=== PATIENT | female | born 1955 | race Caucasian/White ===

== ENCOUNTER → 2019-04-16 16:49 | Outpatient (CLI) | payer OTHER, SELFPAY ==
--- NOTE | 2019-04-16 17:00 | CT_ITS ---
HISTORY: Conductive hearing loss on left that has been getting progressively worse. Technique: 0.625 mm images were obtained through the temporal bones. 2-D reformats were performed in multiple planes. No comparison imaging. 461 images. Findings: On the left there is soft tissue within the middle ear. The soft tissue surrounds the middle ear ossicles within the epi tympanum. The middle ear ossicles appear to be in normal position with normal ossification, and without erosion or displacement. The external auditory canal is free of disease. Some of the ossified septations within the left mastoid air cells have been eroded. The left mastoid is much more sclerotic and less aerated than the right. The medial cortex of the mastoid air cells, where they abut the cerebellum appear to be slightly eroded. Vestibular and cochlear systems are normal. Internal auditory canal is normal. Course of the sixth nerve appears to be normal. The right side appears normal. CT/Orb Sella Post Fossa Ear w/o IMPRESSION: Sclerosis to the left mastoid air cells. Soft tissue within the left middle ear surrounding the middle ear ossicles without displacement or erosion. Of the middle ear ossicles. There may be some erosion of the normal ossific septations within the left mastoid air cells, but without identified soft tissue mass. There is some erosion of the medial table of the mastoid air cells where they abut the cerebellum, but without identified mass. 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 Individualized dose optimization techniques were used for this CT. at 0331 Reported and signed by: Fadi Wagoner MD Electronically Signed: Fadi Wagoner MD at 3:30 EDT Tel , Service support ,
== END ==
PROVIDERS: Family Provider Family Medicine; PCP Family Medicine; Referring Provider Otolaryngology Otolaryngology/Facial Plastic Surgery; Visit Provider Otolaryngology Otolaryngology/Facial Plastic Surgery
DX: H90.12 Conductive hearing loss, unilateral, left ear, with unrestricted hearing on the contralateral side (principal)
CPT/HCPCS: 70480

== ENCOUNTER → 2021-06-18 | Outpatient (CLI) | payer OTHER, SELFPAY ==
[2021-06-18 10:57] VITALS: BMI 28.8
== END | disposition home or self-care (01) ==
LOC: LABSPEC 12:00
PROVIDERS: PCP Family Medicine; Visit Provider Obstetrics & Gynecology
DX: N89.8 Other specified noninflammatory disorders of vagina (principal)
CPT/HCPCS: 87070; 87205

== ENCOUNTER 2021-07-06 05:35 | Day surgery (SDC) | payer OTHER, SELFPAY ==
--- NOTE | 2021-06-30 10:22 | EKG12_ITS ---
Test Reason : PRE OP Blood Pressure : / mmHG Vent. Rate : 067 BPM Atrial Rate : 067 BPM P-R Int : 146 ms QRS Dur : 086 ms QT Int : 428 ms P-R-T Axes : 072 079 066 degrees QTc Int : 452 ms Normal sinus rhythm Low voltage QRS Borderline ECG Confirmed by JUVE BORREGO, CHRISTIANO ([id number]), book or script editor TRACE DEY ([id number]) on 07/01/2021 9:18:35 AM Referred By: Heidy Hare Confirmed By:CHRISTIANO AN MD
[2021-06-30 12:02] LABS: Hematocrit 39.3 % (37-47); Hemoglobin 12.4 g/dL (12.0-15.0); Mean Corp Hgb Conc 31.6 g/dL (32-36); Mean Corpuscular Hgb 28.1 pg (27.0-32.0); Mean Corpuscular Volume 88.9 fL (81-99); Mean Platelet Vol. 9.6 fl (6.2-12.0); Platelet Count 267 K/mm3 (150-450); RBC Distribution Width CV 13.5 % (11.6-14.6); RBC Distribution Width SD 44.2 fl (35.1-43.9); Red Blood Count 4.42 M/mm3 (4.2-5.4); White Blood Count 4.4 K/mm3 (4.4-11.0)
[2021-06-30 12:07] LABS: Prothrombin Time (Protime)PT. 12.7 SECONDS (11.7-14.9)
[2021-06-30 12:08] LABS: Partial Thromboplast Time 27.1 Seconds (24.1-36.2)
[2021-06-30 12:12] LABS: AST(SGOT) 14 U/L (15-37); Alanine Aminotransfer ALT/SGPT 30 U/L (13-56); Albumin, Serum 4.1 g/dL (3.2-5.0); Alkaline Phosphatase 90 U/L (45-117); Bilirubin, Direct 0.12 mg/dL (0.00-0.30); Globulin 3.2 g/dL (2.2-4.2); Magnesium 2.3 mg/dL (1.6-2.6); Protein, Total 7.3 g/dL (6.4-8.2)
[2021-06-30 12:31] LABS: ALB/GLOB Ratio 1.2 RATIO (0.9-2.4); AST(SGOT) 14 U/L (15-37); Alanine Aminotransfer ALT/SGPT 29 U/L (13-56); Albumin, Serum 4.1 g/dL (3.2-5.0); Alkaline Phosphatase 89 U/L (45-117); Anion Gap 7 (5-15); BUN 15 mg/dL (7-18); BUN/Creat Ratio 20.1 RATIO (10-20); Calcium,Total 9.1 mg/dL (8.5-10.1); Chloride 104 mmol/L (98-107); Creatinine, Serum 0.75 mg/dL (0.55-1.02); EST Glomerular Filtration Rate 83 mL/min (>60); Est Glom Filt Rate - Afr Amer 101 mL/min (>60); Globulin 3.3 g/dL (2.2-4.2); Glucose 83 mg/dL (74-106); Potassium 4.1 mmol/L (3.5-5.1); Protein, Total 7.4 g/dL (6.4-8.2); Sodium Level 142 mmol/L (136-145)
--- NOTE | 2021-07-05 23:43 | PCM.HP.BLA ---
History and Physical Date of Admission: 07/05/21 Intake Visit Reasons: TVH BSO Chief Complaint: pre op TV BSO Palliative Care Physician Required: No Is patient in pain?: No Allergies codeine Allergy (Mild, Verified 06/18/21 10:57) other penicillin G Allergy (Mild, Verified 06/18/21 10:57) other Sulfa (Sulfonamide Antibiotics) Allergy (Mild, Verified 06/18/21 10:57) other Medications cephalexin 500 mg capsule 500 mg PO BID 12/08/20 [History Confirmed 06/18/21] cranberry 400 mg capsule 400 mg PO DAILY 12/08/20 [History Confirmed 06/18/21] esomeprazole magnesium 20 mg capsule,delayed release 20 mg PO DAILY 12/08/20 [History Confirmed 06/18/21] Is last menstrual period known: No Post menopausal: Yes Patient : No : No [facility] Medical History Melanoma Surgical History History of endometrial ablation Family History Mother Heart disease Diabetes Father Heart disease Diabetes Social History Smoking Status: Never smoker alcohol intake: current details: social substance use type: does not use caffeine: Yes what type of physical activity do you participate in: none seatbelt use: always do you feel safe at home: Yes additional social history: 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 Female Reproductive History Menopausal Symptoms: No night sweats Pregancy History 3 Elective abortions Hx Para 3 Spontaneous abortions Hx # Term Pregnancies Ectopic pregnancies Hx # Pregnancies Multiple births # of living children Past Pregnancies Del. Date Name GA/Weeks Outcome Route Bth Weight Gen Labor Lgth Anesthesia Del Locatn Provider FOB Unknown 1980 Rodrigo live - full term Unknown Bull live - full term Unknown Tomas live - full term ROS Const Constitutional: Denies fatigue, night sweats, weight gain or weight loss ENT ENT: Reports system reviewed and no additional complaints, except as documented Cardio Card: Denies chest pain Resp Resp: Denies cough or dyspnea GI GI: Reports as per HPI; Denies abdominal pain, constipation, nausea or vomiting : Reports prolapse symptoms and vaginal discharge; Denies nipple discharge, urinary frequency, urinary incontinence, urinary hesitancy, urinary urgency, vaginal dryness, vaginal odor or vaginal pruritus Musc Musc: Reports arthralgias and back pain; Denies muscle weakness Skin Skin/Breast: Denies alopecia, change in hair, dry skin, breast mass, breast pain, breast skin changes or nipple discharge Neuro Neuro: Reports system reviewed and no additional complaints, except as documented Psych Psych: Reports system reviewed and no additional complaints, except as documented Endo Endo: Denies cold intolerance, excessive sweating, heat intolerance or polydipsia Loyd/Lymph Hematologic/Lymphatic: Denies easy bleeding, Reports easy bruising and Denies lymphadenopathy Exam Const General: cooperative, healthy appearing, comfortable, no acute distress and well developed Orientation: alert HENNM Head: normal to inspection and normocephalic Ears: hearing grossly normal bilaterally and external ears normal Nose: external nose normal and nares normal Face and sinus: normal facial exam Neck Neck: normal visual inspection and no lymphadenopathy Thyroid: thyroid normal Chest Chest palpation & inspection: normal inspection of the chest Resp Effort & Inspection: normal respiratory effort Auscultation: clear to auscultation bilaterally Cardio Rate: regular rate Rhythm: regular rhythm Heart Sounds: S1 normal and S2 normal GI Inspection: normal to inspection and non-distended Palpation: soft and no hepatosplenomegaly General: bladder normal to palpation External Female Exam: normal external appearance and normal appearance of the urethra Urethra: normal appearance of the urethra, normal palpation and no discharge Speculum Exam - Vagina: normal appearance of the vagina and abnormal vaginal discharge Speculum Exam - Cervix: normal appearance of the cervix and nontender Bimanual Exam- Vagina & Uterus: normal bimanual exam, uterine size normal, bladder normal to palpation, uterine shape normal, No tender, uterine mobility normal, consistency normal, normal palpation and non-tender Bimanual Exam- Adnexa, other: normal adnexae, adnexae mobile, no masses, rectocele, cystocele and vaginal apex descent Pelvic Support: cystocele, rectocele and vaginal apex descent Musc Other: gross motor intact no deficits, full bilateral strength Skin General: no rashes or lesions noted Neuro General: patient alert, patient awake, moves all extremities and no focal motor deficits Motor: muscle tone normal throughout Extrem General: normal to inspection and no pedal edema Psych Appearance: grossly normal Mental Status: mental status grossly normal Affect: normal affect Speech and Movement: speech and movement normal Coding Level of Care Code No Charge Diagnoses Incomplete uterovaginal prolapse N81.2 Assessment and Plan Assessment and Plan (1) Incomplete uterovaginal prolapse: Status: Acute Comment: discussed surgical options. when desires intervention plan TVHBS possible BSO combo case with drea Plan Details Other Orders: Orders: Culture, Genital Comprehensive Today N89.8 06/18/21 1138 UPDATE- I have seen the patient and performed any clinically relevant updates to the history and physical exam. Heidy Hare MD
[2021-07-06] VITALS (14 sets, daily range): BP systolic 93–145; BP diastolic 55–85; PULSE 55–76; RESP 14–16; TEMP 36.2–36.6; O2SAT 93–100; BMI 29.2
[2021-07-06] MEDS: dexAMETHasone 10 MG/ML Vial 8 MG IV (07:00)
[2021-07-06] MEDS: Scopolamine 1mg/72hr Patch 1 PATCH TD (07:00)
[2021-07-06] MEDS: Celecoxib 200 MG Capsule 400 MG PO (07:06)
[2021-07-06] MEDS: Acetaminophen 500 MG Tablet 1000 MG PO ×2 (07:06→17:56)
[2021-07-06] MEDS: Enoxaparin 40 MG/0.4 ML Syringe SC (07:08)
[2021-07-06] MEDS: Gabapentin 600 MG Tablet PO (07:09)
[2021-07-06 07:16] LABS: Bedside Glucose 82 mg/dL (70-110)
--- NOTE | 2021-07-06 07:30 | HYST_PTH ---
PATIENT: RALF [place]ALLORY [place] [facility] [id number] AGE/SX: 66/F ROOM: RE07/06/[address]: Dr. Heidy Hare MD : 1955 BED: DIS: 07/07/2021 SPEC #: [id number] RECD: 07/06/21 10:43 STATUS: ABE REChi #: [id number] FRANK: 07/06/21 07:[address]: Heidy Hare DEPT: SURGICAL PATHOLOGY RECD BY: Alecia Morelos ENTERED: 07/06/21 10:57 SP TYPE: HYSTERECT OTHR DR: MD Dr. Sandra Santiago MD Tissues: Uterus, NOS Procedures: Surgery Specimen Level V HEADER OPERATION: ERAS, vaginal hysterectomy, salpingo-oophorectomy PRE-OP DIAGNOSIS: Incomplete uterovaginal prolapse TISSUE SUBMITTED: Uterus, cervix, bilateral fallopian tubes and ovaries MICROSCOPIC DIAGNOSIS Uterus, cervix, bilateral fallopian tubes and ovaries, vaginal hysterectomy and bilateral salpingo-oophorectomy: Cervix ? chronic inflammation. Endometrium ? atrophic endometrium. Myometrium ? intramural and subserosal leiomyomas. - Focal adenomyosis. Bilateral fallopian tubes - no pathologic diagnosis. One ovary ? mesothelial inclusion cysts with focal calcification. Benign simple epithelial cyst (0.5 cm in greatest dimension). Second ovary ? focal calcification. SJ:erika 07/07/2021 MICROSCOPIC DESCRIPTION Slides are reviewed. GROSS DESCRIPTION Received in fixative is one container labeled with the patient's name and designated uterus, cervix, bilateral fallopian tube and ovaries. The specimen consists of a hysterectomy specimen consisting of uterus with cervix and detached bilateral fallopian tube and ovaries. The uterus with cervix weighs 45 gm and measures 7 x 4 x 3 cm. The serosal surface is painter, glistening. A subserosal nodule is noted. The ectocervical mucosa is congested. The external os is slit-like in contour. The endocervical canal measures 2 cm in length and the endocervical mucosa is unremarkable. The triangular endometrial cavity measures 3 cm in length and 2.5 cm in width. The endometrium is painter, glistening without any mass lesion and measures <0.1 cm in thickness. Sections of the uterine wall reveal two small nodular masses, each measuring 0.3 cm in diameter. These masses are intramural and subserosal in location. The uterine wall measures up to 2 cm in thickness. Ovaries and fallopian tubes are not identified as right or left. One of the fallopian tube measures 3 cm in length and 0.5 cm in diameter. The fimbrial end is identified. No tubo-ovarian adhesions are noted. Sections reveal unremarkable cut surfaces. The adjacent ovary measures 2 x 1 x 1 cm. Sections reveal a cyst filled with clear fluid measuring 0.5 cm in greatest dimension. The second fallopian tube measures 2 cm in length and 0.5 cm in diameter. It is similar appearance to the first one. The adjacent second ovary measures 2 x 1 x 0.7 cm. Sections reveal unremarkable cut surfaces. A small paratubal cyst is noted measuring 0.2 cm in greatest dimension. [employer] sections are submitted in eight cassettes as follows: 1 - anterior cervix, 2 - posterior cervix, 3 & 4 - anterior uterine wall, 5 & 6 - posterior uterine wall. Cassette 4 contains the subserosal nodular mass. Cassette 6 contains the intramural nodular mass. 7 - one fallopian and adjacent ovary, 8?second fallopian tube, paratubal cyst and adjacent ovary. / MARIUM:erika 07/06/21 TC:1 CPT: 80501
[2021-07-06] MEDS: Lactated Ringers 1,000 ML 40 ML IV (07:51)
[2021-07-06] MEDS: Vasopressin 20 UNITS/ML Vial (08:13)
[2021-07-06] MEDS: Lactated Ringers 1,000 ML 70 ML IV ×2 (09:30→15:17)
--- NOTE | 2021-07-06 10:16 | PCM.OPRPT ---
Problems Associated Problem List Diagnoses (1) S/P vaginal hysterectomy: (2) Incomplete uterovaginal prolapse: Report of Operation Date of Procedure: 07/06/21 Pre-Operative Diagnosis: see problem list Post-Operative Diagnosis: same Surgery/Procedure Performed:: TVH BSO green building design specialist: Bull Chou Type of Anesthesia: General Specimen's removed: uterus, tubes Drains: simms Estimated Blood Loss (mL): 50 Fluids Replaced: crystalloid Description of Procedure: Patient was taken to the operating room and was placed under general anesthesia was prepped and draped in normal sterile fashion in the dorsal lithotomy position. Preoperative antibiotics and SCDs and Simms catheter was placed inside the bladder. Weighted speculum was placed in the vagina and the anterior and posterior lip of the cervix was grasped with 2 Kavya clamps and circumferentially injected with dilute vasopressin. A circumferential incision was made with a scalpel and the posterior cul-de-sac was entered into sharply and a longneck speculum was placed. The anterior cul-de-sac was also dissected down and entered into sharply and the uterosacral ligaments were clamped cut and suture ligated bilaterally followed by the cardinal ligaments which were Clamped cut and suture ligated bilaterally with 0 Monocryl. The uterus serially descended and progressive bites were taken bilaterally up to the level of the utero-ovarian ligament bilaterally which was clamped transected and double ligated with 0 Monocryl suture and 0 Vicryl free tie. Bilateral fallopian tubes and ovaries were well visualized and noted be within normal limits and the bilateral fallopian tubes and ovaries were transected across the base with a Mckinley clamp and removed and sutured with 0 Vicryl monocryl and an o vicryl tie suture. Excellent hemostasis was noted. The vagina was closed with [id number] 0 Vicryl pop offs including the posterior and anterior peritoneum in the reapproximation. Excellent hemostasis was noted. All instruments removed from the vagina clear urine was noted at the end of the procedure and then Dr Liu began her portion. Grafts/Implants Used: none Complications none Admit VTE Documentation VTE Present on Admission: No VTE Mechan Device Prophylaxis: SCD's VTE Pharm Prophylaxis ordered?: Yes Multi Select Codes Urinary/Genital Urinary/Genital CPT Codes: 36225 TVH+BS/O <250gr uterus
--- NOTE | 2021-07-06 10:19 | PCM.DC ---
Discharge Instructions Diet Discharge Diet: No restrictions Activity Discharge Activity: Return to Normal Activity, May Not Drive (while taking narcotic pain medications.) and May Shower May resume sexual activity in: 6-8 weeks Dressing / Incision Call your doctor if your incision/area has: Continuous Slow Oozing, Sudden Increased Bleeding, Increased Pain/ Swelling, Increased Redness and Foul Smelling Discharge Call your doctor if you observe: Fever of 101 or Higher, Inability to urinate, Inability to have a bowel movement and Using more than 1 pad per hour Follow Up Care Please Follow Up With: Heidy Hare MD Test Results: Test results from this visit will be discussed in further detail at your follow-up appointment, if applicable. Discharge Plan Admission Primary Reason for Your Visit: hysterectomy Attending Provider: Heidy Hare Primary Care Provider: Kev Rivera Consulting Providers: Sandra Liu Discharge Orders/Prescriptions Prescriptions: New oxycodone-acetaminophen [Endocet] 5-325 mg tablet 1 tab PO Q4H PRN (Reason: pain) 7 Days Qty: 20 RF: 0 naproxen [naproxen] 500 MG tablet 500 mg PO BID PRN PRN (Reason: Pain) Qty: 30 RF: 1 Continued cranberry 400 mg capsule 400 mg PO DAILY RF: 0 esomeprazole magnesium [Nexium] 20 mg capsule,delayed release(DR/EC) 20 mg PO DAILY RF: 0 cephalexin 500 mg Capsule 500 mg PO TID RF: 0 Referrals / Follow Up: Kev Rivera MD [Primary Care Provider] -
[2021-07-06] MEDS: Estrogens,Conj. 1 Tube 1 DOSE (10:25)
[2021-07-06] MEDS: Ondansetron 4 MG/2 ML Vial IV (10:28)
--- NOTE | 2021-07-06 10:44 | PCM.OPRPT ---
Problems Associated Problem List Diagnoses (1) Incomplete uterovaginal prolapse: Report of Operation Date of Procedure: 07/06/21 Pre-Operative Diagnosis: Incomplete uterovaginal prolapse Post-Operative Diagnosis: Same Surgery/Procedure Performed:: Posterior repair, left sacrospinous ligament fixation cystourethroscopy with bilateral ureteral catheterization Surgeon: Sandra Liu Type of Anesthesia: General Estimated Blood Loss (mL): 100 cc Description of Procedure: Patient is a 66-year-old female who underwent evaluation in the office for pelvic organ prolapse. She was managed for greater than 12 months with a pessary. She desired surgical intervention and had urodynamics and office cystoscopy in preparation for surgery. Informed consent was obtained. The patient underwent a vaginal hysterectomy with bilateral oophorectomy for Dr. Hare. After closure of the vaginal cuff the case was turned over to me. There is essentially no anterior defect identified and the rugae were intact. Posteriorly there was a defect remaining with some lack of vault support. The posterior vaginal wall was injected submucosally with vasopressin for hydrostatic dissection and hemostatic control. Blunt and mostly sharp dissection was performed bilaterally until the rectovaginal fascia was identified. The right side was very difficult dissection, and the decision was made to support her vault on the left side with the sacrospinous ligament fixation. The dissection continued to the ischial spine and the sacrospinous ligament was freed from surrounding tissues. The Capio device was used with a Monodek suture to support the left apex. The suture was brought out through the vaginal wall in full-thickness fashion. The rectovaginal fascia was then brought together in a two layer closure in the midline. Her vaginal mucosa was very friable and continued to tear. Nonetheless a two layer closure was done and the vaginal mucosa was closed in the midline with running interlocking 2-0 Vicryl. Following closure the Monodek suture was tied into position and the apex was lifted. At this time the Hanna catheter was removed. A cystourethroscopy was performed through the urethra under direct visualization. The bladder mucosa in its entirety was visualized and found to be without evidence of injury, foreign body including suture material, no blood was seen. There was no prolapse defect appreciated. Each ureteral orifice was gently cannulated with a five Montserratian whistle-tip catheter which was extended to 20 cm bilaterally without evidence of obstruction, injury or bleeding. At this time the cystoscope was removed and the Hanna catheter was replaced. The vagina was packed with estrogen cream and vaginal packing. The patient was awakened and taken to the recovery room in good condition. There were no complications during this procedure. Grafts/Implants Used: None Complications None Admit VTE Documentation VTE Present on Admission: Yes VTE Mechan Device Prophylaxis: SCD's VTE Pharm Prophylaxis ordered?: Yes
[2021-07-06] MEDS: Ketorolac 30 MG/ML Syringe IV ×2 (11:00→17:55)
[2021-07-06] MEDS: Pantoprazole Sodium 20 MG Tablet PO (15:05)
[2021-07-06] MEDS: Docusate Sodium 100 MG Capsule PO ×2 (15:05→21:55)
[2021-07-06] MEDS: 0.9% Saline Lock 10 ML Syringe IV (17:55)
[2021-07-06] MEDS: Cephalexin 500 MG Capsule PO (21:58)
[2021-07-07] MEDS: Ketorolac 30 MG/ML Syringe IV ×3 (00:03→12:26)
[2021-07-07] MEDS: 0.9% Saline Lock 10 ML Syringe IV ×3 (00:03→12:26)
[2021-07-07] MEDS: Acetaminophen 500 MG Tablet 1000 MG PO ×3 (00:03→12:26)
[2021-07-07] MEDS: oxyCODONE 5 MG Tablet PO (00:07)
[2021-07-07 05:30] VITALS: BP 111/58; PULSE 60; RESP 16; TEMP 36.7; O2SAT 97
[2021-07-07 07:22] LABS: Hematocrit 32.1 % (37-47); Hemoglobin 10.3 g/dL (12.0-15.0); Mean Corp Hgb Conc 32.1 g/dL (32-36); Mean Corpuscular Hgb 28.4 pg (27.0-32.0); Mean Corpuscular Volume 88.4 fL (81-99); Mean Platelet Vol. 9.8 fl (6.2-12.0); Platelet Count 264 K/mm3 (150-450); RBC Distribution Width CV 13.8 % (11.6-14.6); RBC Distribution Width SD 44.9 fl (35.1-43.9); Red Blood Count 3.63 M/mm3 (4.2-5.4); White Blood Count 9.1 K/mm3 (4.4-11.0)
[2021-07-07 07:48] VITALS: BP 105/65; PULSE 62; RESP 16; TEMP 36.9; O2SAT 97
--- NOTE | 2021-07-07 08:00 | PCM.PN.OB ---
Subjective Subjective patient recovering well, denies CP, SOB, N, or V. patient is ambulating,tolerating adequate po, and pain is controlled with oral medications. Objective Data Objective Data Vital Signs: Vital Signs Temp Pulse Resp BP Pulse Ox 98.5 F 62 16 105/65 97 07/07/21 07:48 07/07/21 07:48 07/07/21 07:48 07/07/21 07:48 07/07/21 07:48 Oxygen Flow Rate (L/min) 6 Oxygen Delivery Method Room Air Weight: 164 lb 14.492 oz Body Mass Index (BMI) 29.2 Intake & Output: Intake and Output for Last 24 Hours 07/05/21 07/06/21 07/07/21 23:59 23:59 23:59 Intake Total 1498.33 / 1498.33 1999 / 1999 Output Total 2565 / 2565 700 / 700 Balance -1066.67 / -1066.67 1300 / 1300 Lab / Micro Data Result Diagrams: 07/07/21 06:15 06/30/21 10:42 Labs: Laboratory Results - last 24 hr 07/07/21 06:15: WBC 9.1, RBC 3.63 L, Hgb 10.3 L, Hct 32.1 L, MCV 88.4, MCH 28.4, MCHC 32.1, RDW Std Deviation 44.9 H, RDW Coeff of Amrit 13.8, Plt Count 264, MPV 9.8 Physical Exam Const oriented x3 HEENT normocephalic Resp normal respiratory effort GI non-distended Psych mental status grossly normal Assessment & Plan (1) S/P vaginal hysterectomy: COMMENT: tvh bso with pelvic floor reconstruction PLAN: patient is s/p TVH BSO POD 1 1. routine ERAS protocol postop care- increase ambulation, encourage oral intake and oral control of pain. lovenox and scds for dvt prophylaxis, refer to Dr Liu orders for further care
[2021-07-07 08:11] VITALS: O2SAT 96
--- NOTE | 2021-07-07 08:29 | PCM.PN.BLA ---
Progress Note Doing well! Pain is controlled, no nausea. Sitting up in chair. Does notice pain in tailbone. Physical Exam Const alert, oriented x3 and no apparent distress General Appearance: cooperative and comfortable Orientation / Consciousness: awake HEENT normocephalic Head and Scalp: normal to inspection Face and Sinus: normal facial exam General Ear: hearing grossly impaired External Ear: external ears normal Cardio regular rate GI soft to palpation, non-tender and non-distended Narrative: simms catheter with clear yellow urine...removed without difficulty vaginal packing removed Extremity Extremity Narrative: SCD's in place Assessment & Plan Assessment/Plan (1) Incomplete uterovaginal prolapse: (2) S/P vaginal hysterectomy: PLAN: trial of void home later today
[2021-07-07] MEDS: Pantoprazole Sodium 20 MG Tablet PO (09:04)
[2021-07-07] MEDS: Docusate Sodium 100 MG Capsule PO (09:05)
[2021-07-07] MEDS: Cephalexin 500 MG Capsule PO (09:07)
[2021-07-07] MEDS: Enoxaparin 40 MG/0.4 ML Syringe SC (09:07)
[2021-07-07 10:33] VITALS: BP 104/54; PULSE 67; RESP 18; TEMP 36.9; O2SAT 99
[2021-07-07 10:50] VITALS: O2SAT 99
--- NOTE | 2021-07-07 13:09 | PCM.DC ---
Discharge Instructions Diet Discharge Diet: No restrictions Activity May resume sexual activity in: 8 weeks Additional Activity Instructions:: no swimming, tub bathing, exercise, strenuous activity, or vacuuming Dressing / Incision Call your doctor if your incision/area has: Continuous Slow Oozing, Sudden Increased Bleeding, Increased Pain/ Swelling, Increased Redness and Foul Smelling Discharge Call your doctor if you observe: Fever of 101 or Higher, Inability to urinate, Inability to have a bowel movement and Using more than 1 pad per hour Follow Up Care Please Follow Up With: Heidy Hare MD When: 2 weeks with Test Results: Test results from this visit will be discussed in further detail at your follow-up appointment, if applicable. Discharge Plan Admission Primary Reason for Your Visit: hysterectomy Attending Provider: Heidy Hare Primary Care Provider: Kev Rivera Consulting Providers: Sandra Liu Discharge Orders/Prescriptions Prescriptions: New oxycodone-acetaminophen [Endocet] 5-325 mg tablet 1 tab PO Q4H PRN (Reason: pain) 7 Days Qty: 20 RF: 0 naproxen [naproxen] 500 MG tablet 500 mg PO BID PRN PRN (Reason: Pain) Qty: 30 RF: 1 Continued cranberry 400 mg capsule 400 mg PO DAILY RF: 0 esomeprazole magnesium [Nexium] 20 mg capsule,delayed release(DR/EC) 20 mg PO DAILY RF: 0 cephalexin 500 mg Capsule 500 mg PO TID RF: 0 Referrals / Follow Up: Kev Rivera MD [Primary Care Provider] - Disposition Disposition (needs filled in before D/C Order can be placed): Home, Self Care
[2021-07-07 13:41] VITALS: BP 109/52; PULSE 66; RESP 17; TEMP 37.2; O2SAT 99
== END 2021-07-07 13:30 | disposition home or self-care (01) ==
LOC: SDC 05:36 → AC 05:37 → MS3 09:08
PROVIDERS: Anesthesiology; Urology; PCP Family Medicine; Referring Provider Obstetrics & Gynecology; Visit Provider Obstetrics & Gynecology
PROC: (CPT 58260; principal; 2021-07-06 07:10)
PROC: (CPT 57260; 2021-07-06 07:10)
DX: N81.2 Incomplete uterovaginal prolapse (principal); N39.41 Urge incontinence; N95.2 Postmenopausal atrophic vaginitis; D25.1 Intramural leiomyoma of uterus; D25.2 Subserosal leiomyoma of uterus; N83.299 Other ovarian cyst, unspecified side; M19.90 Unspecified osteoarthritis, unspecified site; R23.3 Spontaneous ecchymoses; K21.9 Gastro-esophageal reflux disease without esophagitis; Z79.899 Other long term (current) drug therapy
CPT/HCPCS: 57282; 58262; 36415; 80053; 80076; 82962; 83735; 85027; 85610; 85730; 86850; 86900; 86901; 88307; 93005; 99251; J7120; A4216; C1758; G0463; J2405

== ENCOUNTER → 2021-08-18 10:38 | Outpatient (CLI) | payer OTHER, SELFPAY ==
[2021-08-18 12:27] LABS: Hemoglobin 11.6 g/dL (12.0-15.0); Mean Corp Hgb Conc 31.4 g/dL (32-36); Mean Corpuscular Hgb 28.2 pg (27.0-32.0); Mean Corpuscular Volume 89.8 fL (81-99); Mean Platelet Vol. 9.5 fl (6.2-12.0); Platelet Count 328 K/mm3 (150-450); RBC Distribution Width CV 12.9 % (11.6-14.6); RBC Distribution Width SD 42.3 fl (35.1-43.9); Red Blood Count 4.12 M/mm3 (4.2-5.4); White Blood Count 6.7 K/mm3 (4.4-11.0)
[2021-08-18 13:07] LABS: Anion Gap 7 (5-15); BUN 16 mg/dL (7-18); BUN/Creat Ratio 20.8 RATIO (10-20); Calcium,Total 9.2 mg/dL (8.5-10.1); Chloride 106 mmol/L (98-107); Creatinine, Serum 0.77 mg/dL (0.55-1.02); EST Glomerular Filtration Rate 80 mL/min (>60); Est Glom Filt Rate - Afr Amer 97 mL/min (>60); Glucose 97 mg/dL (74-106); Potassium 4.1 mmol/L (3.5-5.1); Sodium Level 141 mmol/L (136-145)
== END ==
PROVIDERS: PCP Family Medicine; Referring Provider Urology; Visit Provider Urology
DX: T81.40XA Infection following a procedure, unspecified, initial encounter (principal)
CPT/HCPCS: 36415; 80048; 85027